=== PATIENT | male | born 1945 | race African-American/Black ===

== ENCOUNTER → 2017-01-27 | Outpatient (CLI) | payer MEDICARE, BC, OTHER ==
[2017-01-29 08:41] LABS: PROSTATE SPECIFIC ANTIGEN 1.2 ng/mL (0.0-4.0); PSA % FREE 31.7 % (.); PSA FREE 0.38 ng/mL
== END ==
LOC: LAB 15:04
PROVIDERS: ATTEND Urology
DX: N40.1 Benign prostatic hyperplasia with lower urinary tract symptoms (principal); D86.9 Sarcoidosis, unspecified
CPT/HCPCS: 36415; 84153; 84154

== ENCOUNTER → 2017-02-03 | Outpatient (CLI) | payer MEDICARE, BC, OTHER ==
--- NOTE | 2017-02-03 17:09 | RADIOLOGY REPORT (SQ) ---
EXAM DESCRIPTION: MRI HEAD COMBO COMPLETED DATE/TIME: 02/03/2017 4:06 pm REASON FOR STUDY: PARESTHESIA OF SKIN/SARCOIDOSIS R20.2 PARESTHESIA OF SKIN D86.9 SARCOIDOSIS, UNS PECIFIED COMPARISON: None. TECHNIQUE: Multiplanar imaging includes noncontrasted T1, T2, FLAIR, diffusion with ADC map and post gadolinium contrast T1 sequences. Images stored on PACS. CONTRAST TYPE AND DOSE: 15 mL Multihance. RENAL FUNCTION: GFR > 60. LIMITATIONS: None. FINDINGS: ANATOMY: No anomalies. Normal vascular flow voids. Pituitary fossa normal. CSF SPACES: Normal in size and contour. No hemorrhage. CEREBRUM: Sulci and gyri normal in size and contour. Normal white matter signal on FLAIR imaging. No evidence of hemorrhage, mass, or extraaxial fluid collection. No abnormal enhancement post contrast. POSTERIOR FOSSA: No signal alteration. No hemorrhage. No edema, masses, or mass effect. Internal herminia tory canals, cerebellopontine angles, mastoids normal. No enhancing lesions. No abnormal enhancement post contrast. DIFFUSION IMAGING: Negative for acute or subacute infarction. ORBITS: No masses. Globes normal. PARANASAL SINUSES: No fluid levels. Mucosa normal. OTHER: No other significant finding. IMPRESSION: NORMAL MRI OF THE BRAIN WITHOUT AND WITH INTRAVENOUS GADOLINIUM CONTRAST. EVIDENCE OF ACUTE STROKE: NO. TECHNICAL DOCUMENTATION: JOB ID: [id number]- All Rights Reserved
== END ==
LOC: RAD 15:05
PROVIDERS: ATTEND Urology
DX: R20.2 Paresthesia of skin (principal); D86.9 Sarcoidosis, unspecified; N40.1 Benign prostatic hyperplasia with lower urinary tract symptoms
CPT/HCPCS: 82565; 70553; A9577